=== PATIENT | male | born 1965 | race Caucasian/White ===

== ENCOUNTER 2021-11-19 02:41 | Emergency (ER) | payer MEDICARE, SELFPAY ==
--- NOTE | ~2021-11-19 | CT_ITS ---
EXAMINATION: CT lumbar spine wo con DATE: 11/19/2021 04:46 INDICATION: Low back pain. TECHNIQUE: Computed tomography (CT) of the lumbar spine was performed without intravenous contrast. A utomated exposure control and iterative reconstruction technique were employed. The dose-length produ ct was 711.39 mGy-cm. COMPARISON: None FINDINGS: Partially visualized is a transjugular intrahepatic portosystemic shunt. There is 3 degrees dextrocurvature of lumbar spine. There is mild chronic anterior wedging of T12 and L1 vertebral bodi es. There is mildly decreased disc height at L2-L3 and L4-L5. The following disc levels are specifica lly discussed: L1-L2: The disc is bulging. There is severe bilateral facet joint osteoarthritis. There is mild left neural foraminal stenosis. There is mild central canal stenosis. L2-L3: The disc is bulging. There is severe right and moderate left facet joint osteoarthritis. There is mild bilateral neural foraminal stenosis. There is mild central canal stenosis. L3-L4: The disc is bulging. There is mild right and moderate left facet joint osteoarthritis. There i s mild right and moderate left neural foraminal stenosis. There is mild central canal stenosis. L4-L5: The disc is bulging. There is moderate bilateral facet joint osteoarthritis. There is moderate bilateral neural foraminal stenosis. There is severe central canal stenosis. L5-S1: The disc is bulging. There is severe bilateral facet joint osteoarthritis. There is mild bilat eral neural foraminal stenosis. There is mild central canal stenosis. IMPRESSION: 1. Severe lumbar spondylosis. Reviewed, dictated and finalized at location A.
[2021-11-19 03:00] VITALS: BP 170/92; PULSE 81; RESP 18; TEMP 36.6; O2SAT 98
--- NOTE | 2021-11-19 03:10 | ED.GENADULT ---
HPI - General Adult General Chief complaint: Back Pain/Injury Stated complaint: lower flank pain Time Seen by Provider: 11/19/21 02:47 History of Present Illness HPI narrative: This is a 56-year-old male who presented ED with lower back pain. Patient has chronic lumbar radiculopathy. He says the pain starts in the left sacroiliac region extends down the back of his leg to the bottom his foot. Patient was supposed to have lumbar surgery in February of last year in [place], but it was cancelled due to low platelets. Since then it appears he has been moving around to different locations and seeing different doctors. The patient states over the last month he has been having more difficulty urinating and was recently started on flomax. Patient denies fever, chills, history of cancer or recent trauma. He has remote history of IV drug use approximately 25 years ago. Patient denies saddle anesthesia or bowel incontinence. Related Data Home Medications Medication Instructions Recorded Confirmed carvedilol 3.125 mg tablet 3.125 mg PO DAILY 11/19/21 11/19/21 cyclobenzaprine 5 mg tablet 5 mg PO DAILY 11/19/21 11/19/21 gabapentin 300 mg capsule 300 mg PO BID 11/19/21 11/19/21 hydrocodone 5 mg-acetaminophen 325 1 tablet PO PRN PRN Pain 11/19/21 11/19/21 mg tablet tamsulosin 0.4 mg capsule 0.4 mg PO DAILY 11/19/21 11/19/21 Allergies Allergy/AdvReac Type Severity Reaction Status Date / Time tramadol Allergy Hives Verified 11/19/21 03:19 Review of Systems Constitutional: Constitutional: Denies chills and Denies fever(s) Eyes: Eyes: Denies change in vision ENT: Denies dysphagia Cardiovascular: Cardiovascular: Denies chest pain Respiratory: Respiratory: Denies chest congestion Gastrointestinal: Gastrointestinal: Denies abdominal pain Genitourinary: Genitourinary: Denies hematuria Musculoskeletal: Musculoskeletal: Denies back pain Integumentary/Breasts: Skin/Breast: Denies rash Neurologic: Denies confusion Psychiatric: Psychiatric: Denies anxiety Endocrine: Endocrine: Denies excessive sweating Hematologic/Lymphatic: Hematologic/Lymphatic: Denies easy bleeding Allergic/Immunologic: Allergic/Immunologic: Denies lip swelling PMFSH Past Medical History Medical History Esophageal varices Hepatic cirrhosis due to chronic hepatitis C infection Lumbar radiculopathy Surgical History Surgical History H/O hand surgery S/P TIPS (transjugular intrahepatic portosystemic shunt) Exam Narrative: patient is lying on the bed. He is intermittently crying out in pain. Const: General: healthy appearing Orientation/consciousness: patient oriented x3 Limitations: no limitations HENMT: Head: normal to inspection Ears: external ears normal General nose exam: Normal external nose present Face and sinus: normal facial exam Eyes: Conjunctivae: conjunctivae normal Pupils: Equal, round and reactive pupils present EOM: EOMs intact bilaterally Neck: Neck: normal visual inspection Chest: Chest palpation & inspection: normal inspection of the chest Resp: Effort & Inspection: normal respiratory effort Cardio: Rate: regular rate Rhythm: regular rhythm GI: GI Palp: Yes Soft to palpation, No Tenderness to palpation present (GI) and No Guarding due to palpation present (GI) : General: Yes bladder normal to palpation Back/Spine/Pelvis: Back: no CVA tenderness Skin: General skin exam: normal color Rashes: no rashes Neuro: General: patient oriented x3, moves all extremities, Normal light touch and pain sensation and CN's II-XI intact bilaterally Motor exam (neuro): Abnormal motor strength present (Decreased plantar flexion of L ankle.) Other: Patient has pain with elevation his left leg however he is not having increased pain with dorsiflexion of the foot. Negative straight leg raise on the right.
[2021-11-19] MEDS: HYDROcodone/acetaminophen (*CRX) 5-325 MG TABLET 1 TAB PO (03:24)
[2021-11-19] MEDS: ACETAMINOPHEN 325 MG TABLET 650 MG PO (03:25)
[2021-11-19] MEDS: CYCLOBENZAPRINE HCL 10 MG TABLET 5 MG PO (03:25)
[2021-11-19] MEDS: KETOROLAC 30 MG/ML VIAL (*BKC) 15 MG IM (03:26)
--- NOTE | 2021-11-19 04:17 | PC.NURSE ---
Pt is unable to urinate at this time and reports he has had difficulty urinating and unable to walk due to pain. Pt attempted to urinate standing and unsuccessful. ERP spoke to pt. about POC for transfer to have further studies and possible MRI. Pt wants to go to [place] if able. Call placed to [facility] for oncall neurosurgery.
[2021-11-19 04:54] LABS: Basophils Absolute Auto 0.07 K/mm3 (0.00-0.10); Basophils Percent Auto 1.3 % (0.0-1.0); Eosinophils Percent Auto 3.6 % (1.0-6.0); Hematocrit 43.1 % (40.0-54.0); Hemoglobin 15.1 g/dL (14.0-18.0); Immature Granulocyte Absolute 0.01 K/mm3 (0.00-0.00); Immature Granulocyte Percent A 0.2 % (0.0-0.0); Lymphocytes Absolute Auto 2.14 K/mm3 (1.10-4.50); Lymphocytes Percent Auto 38.8 % (18.0-42.0); Mean Corpuscular Volume 94.3 fL (78.0-102.0); Mean Platelet Volume 10.7 fl (8.7-11.0); Monocytes Percent Auto 9.1 % (2.0-11.0); Neutrophils Absolute Auto 2.6 K/mm3 (1.7-7.2); Platelet Count Result 100 K/mm3 (150-420); Red Blood Count 4.57 M/mm3 (4.70-6.10); Red Cell Distribution Width 15.1 % (11.6-14.4); White Blood Count 5.5 K/mm3 (4.8-10.8)
[2021-11-19 04:58] VITALS: BP 169/77; PULSE 87; RESP 20; O2SAT 97
[2021-11-19 05:07] LABS: INR 1.1
[2021-11-19 05:10] LABS: Alanine Aminotransferase 23 U/L (16-63); Albumin Level 3.6 g/dL (3.4-5.0); Alkaline Phosphatase 144 U/L (46-116); Anion Gap 11 mmol/L (8-16); Aspartate Amino Transferase 37 U/L (15-37); Bilirubin,Total 1.7 mg/dL (0.00-1.00); Blood Urea Nitrogen 7 mg/dL (7-18); Calcium 9.1 mg/dL (8.5-10.1); Carbon Dioxide 23 mmol/L (21-32); Chloride 112 mmol/L (98-108); Estimated CRCL calculation 96 ml/min; Estimated Glomerular Filt Rate > 60; Glucose 109 mg/dL (70-99); Osmolality Calculated 301 mOsm/kg (285-295); Potassium 3.7 mmol/L (3.5-5.1); Sodium 146 mmol/L (136-145); Total Protein 6.9 g/dL (6.4-8.2)
[2021-11-19 06:03] LABS: SARS-CoV-2 RNA PCR Negative (Negative)
--- NOTE | 2021-11-19 06:05 | PC.NURSE ---
ERP spoke to Neuro Dr. Franklin at [facility], awaiting to review pts records and will call back if accepted and able to transfer.
[2021-11-19 06:23] VITALS: BP 160/74; PULSE 74; RESP 18; TEMP 36.4; O2SAT 98
--- NOTE | 2021-11-19 06:28 | PC.NURSE ---
Call placed to [facility] for pt transfer. Pt sleeping at this time, VSS.
== END 2021-11-19 06:59 | disposition short-term general hospital (02) ==
PROVIDERS: Emergency Provider Emergency Medicine
DX: M54.16 Radiculopathy, lumbar region (principal); G95.20 Unspecified cord compression
CPT/HCPCS: 36415; 72131; 80053; 85025; 85610; 86850; 86900; 86901; 96372; 99285; A9270; C9803; J1885; U0003; U0005

== ENCOUNTER 2021-11-19 07:32 | Inpatient (IN) | payer MEDICARE, SELFPAY ==
--- NOTE | ~2021-11-19 | MR_ITS ---
EXAMINATION: MR thoracic spine wo con DATE: 11/20/2021 17:37 INDICATION: Back pain, hand numbness, lower extremity weakness, urinary retention. TECHNIQUE: Magnetic resonance imaging (MRI) of the thoracic spine was performed without intravenous c ontrast. Sagittal localizer T1-weighted FSE of the cervical spine was obtained. Thoracic spine sequen bee included sagittal T2-weighted FSE, sagittal T1-weighted FSE, sagittal T2-weighted FS FSE, and axi al T2-weighted FSE. COMPARISON: None FINDINGS: Mild upper thoracic scoliosis. Vertebral bodies are aligned. Multilevel Schmorl's nodes wit h disc dehydration in the mid to lower thoracic spine. Modic type I changes in the anterolateral aspe ct of T6-7. Modic type II changes in the anterolateral aspect of T8-9 2012 at L1. Likely vertebral mere dy hemangioma at L1. Vertebral body heights are intact. Multilevel mild to moderate facet arthropathy in the lower thoracic spine. Small, focal disc extrusion at T7-8 with right sided posterior directed osteophyte that indents the thecal sac. Right-sided facet hypertrophy at T10-11 anteriorly directed osteophyte that indents the thecal sac. No significant neural foraminal stenosis. The cord is normal in signal and caliber. Conus terminates at L1. IMPRESSION: 1. Modic type I changes at T6/7 could be a source of pain. 2. Mild central canal stenosis at T7-8 and T10-11 secondary to degenerative disc and facet change. 3. Multilevel mild to moderate facet arthropathy. Reviewed, dictated and finalized at location K. IMPRESSION: 1. Modic type I changes at T6/7 could be a source of pain. 2. Mild central canal stenosis at T7-8 and T10-11 secondary to degenerative dis c and facet change. 3. Multilevel mild to moderate facet arthropathy.
--- NOTE | ~2021-11-19 | MR_ITS ---
EXAMINATION: MR cervical spine wo con DATE: 11/20/2021 17:43 INDICATION: Back pain. Hand numbness. TECHNIQUE: Magnetic resonance imaging (MRI) of the cervical spine was performed without intravenous c ontrast. Sequences included sagittal T2-weighted FSE, sagittal T2-weighted FS FSE, sagittal T1-weight ed FSE, axial MERGE, and axial T2-weighted FSE. COMPARISON: None FINDINGS: Craniocervical association and atlantoaxial joint are intact. Normal alignment. Vertebral b jaelyn heights are maintained. Normal discs. The cord signal is normal. Diffuse congenital appearing ruby tral canal narrowing. Normal cervicomedullary junction. The following disc levels are specifically di scussed: C2-C3: Mild diffuse bulge. There is moderate right and mild left uncovertebral joint osteoarthritis. There is mild bilateral facet joint osteoarthritis. There is moderate right and mild left neural fora melissa stenosis. There is mild central canal stenosis. C3-C4: Mild diffuse bulge with small central protrusion. There is mild bilateral uncovertebral joint osteoarthritis. There is mild bilateral facet joint osteoarthritis. There is mild bilateral neural fo raminal stenosis. There is mild central canal stenosis. C4-C5: Mild diffuse bulge with a small left subarticular protrusion There is mild right and moderate left uncovertebral joint osteoarthritis. There is mild bilateral facet joint osteoarthritis. There is mild right and moderate left neural foraminal stenosis. There is mild central canal stenosis. C5-C6: Mild diffuse bulge with a small left subarticular extrusion. There is moderate bilateral uncov ertebral joint osteoarthritis. There is mild bilateral facet joint osteoarthritis. There is mild righ t and moderate left neural foraminal stenosis. There is mild central canal stenosis. C6-C7: Mild diffuse bulge with a small central protrusion. There is mild bilateral uncovertebral join t osteoarthritis. There is mild bilateral facet joint osteoarthritis. There is mild bilateral neural foraminal stenosis. There is mild central canal stenosis. C7-T1: Moderate diffuse bulge with a small central protrusion. There is mild right and moderate left uncovertebral joint osteoarthritis. There is mild bilateral facet joint osteoarthritis. There is no r ight and mild left neural foraminal stenosis. There is no central canal stenosis. IMPRESSION: 1. Multilevel degenerative disc disease in the cervical spine with multiple small disc protrusions/ex trusions, described above. 2. Uncovertebral joint hypertrophy and facet arthropathy contribute to multilevel mild and moderate d egrees of neural foraminal narrowing. 3. Multilevel mild central canal stenosis likely on a combined degenerative and congenital basis. Reviewed, dictated and finalized at location K. IMPRESSION: 1. Multilevel degenerative disc disease in the cervical spine with multiple sma ll disc protrusions/extrusions, described above. 2. Uncovertebral joint hypertrophy and facet arthropathy contribute to multilev el mild and moderate degrees of neural foraminal narrowing. 3. Multilevel mild central canal stenosis likely on a combined degenerative and congenital basis.
--- NOTE | ~2021-11-19 | MR_ITS ---
EXAMINATION: MR lumbar spine wo con DATE: 11/20/2021 17:37 INDICATION: back pain . TECHNIQUE: Magnetic resonance imaging (MRI) of the lumbar spine was performed without intravenous con trast. Sequences included sagittal T2-weighted FSE, sagittal T2-weighted FS FSE, sagittal T1-weighted FSE, and axial T2-weighted FSE. COMPARISON: None FINDINGS: The last fully formed and hydrated disc is designated L5-S1. Mild focal marrow edema at the superior endplates of L2 and L3. Scattered Modic 2 type change. Conus terminates at L1. Multilevel d isc dehydration. The following disc levels are specifically discussed: T11-T12: Mild diffuse bulge. There is mild bilateral facet joint osteoarthritis. There is no neural f oraminal stenosis. There is no central canal stenosis. T12-L1: The disc does not extend beyond the endplate margin. There is no facet joint osteoarthritis. There is no neural foraminal stenosis. There is no central canal stenosis. L1-L2: Mild diffuse bulge. There is mild bilateral facet joint osteoarthritis. There is no neural for aminal stenosis. There is no central canal stenosis. L2-L3: Moderate diffuse bulge. There is moderate bilateral facet joint osteoarthritis. There is moder ate bilateral neural foraminal stenosis. There is mild central canal stenosis. L3-L4: Moderate diffuse bulge. There is severe bilateral facet joint osteoarthritis. There is mild ri ght and moderate left neural foraminal stenosis. There is mild central canal stenosis. L4-L5: Large diffuse bulge. There is severe bilateral facet joint osteoarthritis. There is moderate b ilateral neural foraminal stenosis. There is severe central canal stenosis. L5-S1: Mild diffuse bulge. There is moderate bilateral facet joint osteoarthritis. There is no neural foraminal stenosis. There is no central canal stenosis. IMPRESSION: 1. Severe central canal stenosis at L4-5 secondary to a large degenerative disc bulge and severe bila teral facet osteoarthritis. 2. Moderate left L3-4 and moderate bilateral L4-5 neural foraminal narrowing. 3. Mild focal superior endplate edema in L2 and L3, possibly representing early Modic type I change, which may be an additional source of pain. 4. Multilevel moderate facet arthropathy. Reviewed, dictated and finalized at location K. IMPRESSION: 1. Severe central canal stenosis at L4-5 secondary to a large degenerative disc bulge and severe bilateral facet osteoarthritis. 2. Moderate left L3-4 and moderate bilateral L4-5 neural foraminal narrowing. 3. Mild focal superior endplate edema in L2 and L3, possibly representing early Modic type I change, which may be an additional source of pain. 4. Multilevel moderate facet arthropathy.
[2021-11-19 09:15] VITALS: BMI 26.8
--- NOTE | 2021-11-19 09:20 | ADMGEN ---
This patient, Danilo Munoz, was admitted to [facility] Surg Room 325-02 at 0720. Patient/family oriented to hospital policies and general routines including ID bracelet, bed and alarms, visiting hours, pain management, procedures, bathroom and other care routines, personal items, smoking policy, room service/diet, and visiting hours. Information on how to activate the Rapid Response Team has been discussed. Patient/Family are encouraged to report perceived risks to care and to ask questions if they do not understand what they are told or what they should do.
[2021-11-19] MEDS: CYCLOBENZAPRINE HCL 5 MG TABLET PO (10:05)
[2021-11-19] MEDS: HYDROcodone/acetaminophen (*CRX) 5-325 MG TABLET 1 TAB PO ×2 (10:05→14:10)
[2021-11-19] MEDS: GABAPENTIN 300 MG CAPSULE PO ×2 (10:35→20:12)
[2021-11-19] MEDS: TAMSULOSIN HCL 0.4 MG CAPSULE PO (10:35)
[2021-11-19 13:33] VITALS: BP 168/81; PULSE 82; RESP 18; TEMP 36.4; O2SAT 99
--- NOTE | 2021-11-19 13:40 | PM.IMHP ---
H&P: HPI History of Present Illness Date/Time: 11/19/21 13:40 Chief Complaint: Bilateral lower leg extremity/Urinary retention Narrative: Patient is a 56-year-old male with a past medical history of esophageal varices, hepatic cirrhosis with hepatitis-C, tip surgery, umbilical hernia repair, peripheral neuropathy who presented to the ED at [place] with complaints of bilateral lower extremity weakness and urinary retention. Patient stated this all started a little while ago and has just gotten worse over last couple days. Patient stated that in order to urinate he has to lean a certain way and turned his head a certain way for tall come out. He then told me that it is all related to the bone spurs in his neck hitting his sciatic nerve in his hip causing him to have shooting pain and numbness and tingling in legs. Patient stated that he has not been able to walk lately. He was supposed to have surgery however his platelets were low the would do a surgery for him. Patient also stated that when he tries to urinate standing up it is impossible. He denies any dizziness, chest pain, shortness a breath, nausea, vomiting, diarrhea, constipation, weakness or fatigue. He did look to have some muscle spasm going on. CT of the spine just showed spondylolysis. Mcclure catheter was inserted due to the patient's having urinary retention for greater than 576 on the bladder scan. Patient is being admitted to the hospital service under observation Review of Systems Review of Systems: All systems reviewed & are unremarkable except as noted in HPI and below PMFSH Past Medical History Medical History Chronic pain Esophageal varices Hepatic cirrhosis due to chronic hepatitis C infection Hypertension Lumbar radiculopathy Surgical History Surgical History H/O hand surgery S/P TIPS (transjugular intrahepatic portosystemic shunt) Family History Family History Father Heart disease Hypertension ESRD (end stage renal disease) on dialysis Diabetes mellitus Mother Non-small cell carcinoma of left lung Social History Social History Social History: patient is currently living with his cousin temporarily and just moved to [place] 1 month ago. His surrogate is a son Raghav at . 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 Patient wishes to be a full code at this time. 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 Living arrangements: with family Occupation/Education: occupation Gender identity (if verbalized by the patient): Male Sexual Orientation (if Verbalized by the Patient): Straight or Heterosexual Spiritual care concerns: No Agree to blood products: Yes Meds Home Medications and Allergies Home Medications Medication Instructions Recorded Confirmed Type cyclobenzaprine 5 mg tablet 5 mg PO DAILY 11/19/21 11/19/21 History gabapentin 300 mg capsule 300 mg PO BID 11/19/21 11/19/21 History hydrocodone 5 mg-acetaminophen 325 1 tablet PO PRN PRN Pain 11/19/21 11/19/21 History mg tablet tamsulosin 0.4 mg capsule 0.4 mg PO DAILY 11/19/21 11/19/21 History Allergies Allergy/AdvReac Type Severity Reaction Status Date / Time tramadol Allergy Hives Verified 11/19/21 03:19 Vital Signs Vital Signs - 24 hr 11/19/21 13:33 Temperature 97.5 F L Pulse Rate 82 Respiratory Rate
[2021-11-19] MEDS: MORPHINE SULFATE (*CRX) 2 MG/ML INJ IV PUSH ×2 (16:56→20:15)
[2021-11-19 20:00] VITALS: PULSE 82; RESP 18; O2SAT 97
[2021-11-19 23:57] VITALS: BP 168/81; PULSE 82; RESP 18; TEMP 36.4; O2SAT 97
[2021-11-20] MEDS: MORPHINE SULFATE (*CRX) 2 MG/ML INJ IV PUSH ×6 (00:54→20:45)
[2021-11-20] MEDS: TIZANIDINE HCL 2 MG TABLET PO ×2 (04:59→12:57)
[2021-11-20 06:56] LABS: Basophils Absolute Auto 0.1 K/mm3 (0.0-0.1); Basophils Percent Auto 1.3 % (0.2-1.2); Eosinophils Absolute Auto 0.2 K/mm3 (0-0.3); Eosinophils Percent Auto 3.6 % (0-4.4); Hematocrit 41.2 % (42.0-52.0); Hemoglobin 14.1 g/dL (14.0-18.0); Immature Granulocyte Absolute 0.01 K/mm3 (0.00-0.031); Immature Granulocyte Percent A 0.2 % (0-0.5); Immature Platelet Fraction Pct 5.1 % (0.9-11.2); Lymphocytes Absolute Auto 1.62 K/mm3 (0.9-3.2); Lymphocytes Percent Auto 34.3 % (18.3-44.2); Mean Corpuscular HGB Conc 34.2 g/dl (32-36); Mean Corpuscular Hemoglobin 32.4 pg (26-34); Mean Corpuscular Volume 94.7 fl (80-100); Mean Platelet Volume 10.3 fl (7.4-10.4); Monocytes Absolute Auto 0.5 K/mm3 (0.1-0.6); Neutrophils Absolute Auto 2.4 K/mm3 (1.3-6.7); Neutrophils Percent Auto 50.6 % (45.5-73.1); Platelet Count Result 90 k/mm3 (150-375); Red Blood Count 4.35 M/mm3 (4.6-6.20); Red Cell Distribution Width 15.3 % (11.5-14.5); White Blood Count 4.7 K/mm3 (4.5-10.0)
[2021-11-20 07:12] LABS: Alanine Aminotransferase 18 U/L (6-50); Albumin Level 3.1 g/dL (3.5-5.1); Alkaline Phosphatase 111 U/L (38-126); Anion Gap 5 mmol/L (8-16); Aspartate Amino Transferase 35 U/L (17-59); Blood Urea Nitrogen 9 mg/dL (9-20); Calcium 8.3 mg/dL (8.4-10.2); Carbon Dioxide 25 mmol/L (22-30); Chloride 107 mmol/L (98-107); Estimated CRCL calculation 102 ml/min; Estimated Glomerular Filt Rate > 60; Glucose 115 mg/dL (65-110); Magnesium 1.7 mg/dL (1.6-2.3); Potassium 3.6 mmol/L (3.4-5.0); Sodium 137 mmol/L (137-145)
[2021-11-20 08:00] VITALS: BP 102/60; PULSE 63; RESP 20; TEMP 36.4; O2SAT 100
[2021-11-20] MEDS: GABAPENTIN 300 MG CAPSULE PO ×2 (08:48→20:27)
[2021-11-20] MEDS: TAMSULOSIN HCL 0.4 MG CAPSULE PO (08:48)
[2021-11-20 14:00] VITALS: BP 111/58; PULSE 57; RESP 18; TEMP 36.7; O2SAT 100
--- NOTE | 2021-11-20 14:00 | PM.IMPN ---
Progress Note: A&P Assessment and Plan (1) Lumbar radiculopathy: Code(s): M54.16 - Radiculopathy, lumbar region Status: Acute Assessment and Plan: patient does have notable chronic back pain CT shows severe spondylolysis MRI ordered however awaiting for more information on the stent and shoulder neurochecks Q 4 hours pain medication on board tizanidine 2 mg t.i.d. p.r.n. Trend pain score neurosurgery on board concern for spinal cord compression since the patient can not walk or use the bathroom quick appropriately (2) BPH (benign prostatic hyperplasia): Code(s): N40.0 - Benign prostatic hyperplasia without lower urinary tract symptoms Status: Acute Assessment and Plan: patient reports urinary retention bladder scan showed 576 in bladder urinary catheter installed continue home Flomax consider urology consult (3) Hypertension: Code(s): I10 - Essential (primary) hypertension Status: Acute Assessment and Plan: current blood pressure 102/60 continue home carvedilol 3.125 daily trend blood pressure adjust therapy as indicated (4) Chronic pain: Code(s): G89.29 - Other chronic pain Status: Acute Assessment and Plan: Tylenol, [place], morphine on board for pain Trend pain score adjust therapy as indicated Time Spent With Patient Time with patient: Greater than 35 minutes Subjective Date/time seen: 11/20/21 1400 Interval history: 11/20/21 1400 No real changes noted today. He does have pain when he tries to move his bilateral lower extremities. He denies any chest pain, shortness of breath, nausea, constipation, diarrhea. They did get records from [facility] however they did show a revision of shunt stent. Still waiting other records from other facility. Neuro surgery on board however state they can do anything into the get MRI. 11/19/21? 13:40 ? Patient is a 56-year-old male with a past medical history of esophageal varices, hepatic cirrhosis with hepatitis-C, tip surgery, umbilical hernia repair, peripheral neuropathy who presented to the ED at [facility] with complaints of bilateral lower extremity weakness and urinary retention.? Patient stated this all started a little while ago and has just gotten worse over last couple days.? Patient stated that in order to urinate he has to lean a certain way and turned his head a certain way for tall come out.? He then told me that it is all related to the bone spurs in his neck hitting his sciatic nerve in his hip causing him to have shooting pain and numbness and tingling in legs.? Patient stated that he has not been able to walk lately.? He was supposed to have surgery however his platelets were low the would do a surgery for him.? Patient also stated that when he tries to urinate standing up it is impossible.? He denies any dizziness, chest pain, shortness a breath, nausea, vomiting, diarrhea, constipation, weakness or fatigue.? He did look to have some muscle spasm going on.? CT of the spine just showed spondylolysis.? Mcclure catheter was inserted due to the patient's having urinary retention for greater than 576 on the bladder scan. Review of Systems Review of Systems: All systems reviewed & are unremarkable except as noted in HPI and below Exam Const: General: cooperative, healthy appearing, no acute distress, well developed, alert and awake Nutritional Appearance: well nourished Orientation/consciousness: patient oriented x3 Limitations: no limitations HENMT: Head: normal to inspection Ears: hearing grossly normal bilaterally General nose exam: Normal external nose present Mouth: Yes Normal oral and palatal mucosa present, Yes lip normal and Yes tongue normal Teeth and gingiva: abnormal tooth and associated gingiva and poor dentition Eyes: General: appearance normal, both eyes and all related structures Neck: Ne
--- NOTE | 2021-11-20 15:53 | WPDCN ---
Assessment and Plan Assessment and plan (1) Lumbar radiculopathy: Code(s): M54.16 - Radiculopathy, lumbar region Status: Acute Plan 56 yo M w/ Hep C, HTN, chronic low back pain progressive over 6 months who presents with concern for cauda equina, unable to get MRI for past 2 days. Additional Plan recommend STAT MRI Lumbar spine Please keep NPO after midnight Please obtain PT/PTT/INR Platelet goal >100k HPI Data of Consult Date/Time: 11/20/21 15:53 Requesting Physician: Bin Tidwell MD Primary Care Provider: UNKNOWN,DOCTOR Consult Narrative Narrative: Danilo Munoz is a 56 year old male with a history of hepatitis C s/p treatment, TIPS procedure, and prior shoulder stent who presents with chronic low back pain. 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 He recently moved from [place] to [place] to live with his cousins. He has been on disability since 2017. He explains he has had progressive weakness in his lower extremities for the past 6 months. He has had difficulty urinating for a similar time period that has worsened in the past week prompting him to seek medical attention in [place]. They did not have an MRI scan here so a transfer to [facility] was requested. Since his arrival here yesterday morning, attempts have been made to identify a serial number on his stent and he has been unable to get an MRI scan. He reports to me he has had several MRI scans without issue. He notes some paresthesias in his pinky fingers bilaterally, otherwise no upper extremity syumptoms. Review of Systems Review of Systems: All systems reviewed & are unremarkable except as noted in HPI and below PMFSH Past Medical History Medical History Chronic pain Esophageal varices Hepatic cirrhosis due to chronic hepatitis C infection Hypertension Lumbar radiculopathy Surgical History Surgical History H/O hand surgery S/P TIPS (transjugular intrahepatic portosystemic shunt) Family History Family History Father Heart disease Hypertension ESRD (end stage renal disease) on dialysis Diabetes mellitus Mother Non-small cell carcinoma of left lung Social History Social History Social History: patient is currently living with his cousin temporarily and just moved to [place] 1 month ago. His surrogate is a son Raghav at . Patient is currently on disability and was a executive chef assistant for 20 years. Patient wishes to be a full code at this time. 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 Living arrangements: with family Occupation/Education: occupation Gender identity (if verbalized by the patient): Male Sexual Orientation (if Verbalized by the Patient): Straight or Heterosexual Spiritual care concerns: No Agree to blood products: Yes Meds Home Medications and Allergies Home Medications Medication Instructions Recorded Confirmed Type cyclobenzaprine 5 mg tablet 5 mg PO DAILY 11/19/21 11/19/21 History gabapentin 300 mg capsule 300 mg PO BID 11/19/21 11/19/21 History hydrocodone 5 mg-acetaminophen 325 1 tablet PO PRN PRN Pain 11/19/21 11/19/21 History mg tablet tamsulosin 0.4 mg capsule 0.4 mg PO DAILY 11/19/21 11/19/21 History Allergies Allergy/AdvReac Type Severity Reaction Status Date / Time ciarra
--- NOTE | 2021-11-20 16:41 | PC.NURSE ---
patient to MRI per stretcher
--- NOTE | 2021-11-20 18:01 | PC.NURSE ---
patient returning to room from MRI
[2021-11-20 18:12] LABS: Appearance Urine Clear (Clear); Bilirubin Urine Negative (Negative); Blood Urine 1+ (Negative); Color Urine Yellow (Yellow); Glucose Urine UA Negative (Negative); Ketones Urine Negative (Negative); Leukocyte Esterase Ur 1+ LEU/UL (NEGATIVE); Nitrate Urine Negative (Negative); Protein Urine Negative (Negative)
[2021-11-20 18:29] LABS: Bacteria Urine Trace /hpf; Mucus Urine Rare /lpf
[2021-11-20 18:31] LABS: Add Urine Microscopic? YES
[2021-11-20 21:51] VITALS: BP 126/59; PULSE 70; RESP 18; TEMP 35.8; O2SAT 99
[2021-11-21] MEDS: MORPHINE SULFATE (*CRX) 2 MG/ML INJ IV PUSH ×3 (01:05→09:47)
[2021-11-21 06:00] VITALS: BP 134/58; PULSE 60; RESP 18; TEMP 36.1; O2SAT 99
--- NOTE | 2021-11-21 07:24 | PM.TDS ---
Transfer Discharge Sum: Prov Provider Date of admission: 11/20/21 14:45 Primary care physician: UNKNOWN,DOCTOR Admitting clinician: Bin Tidwell MD Consults: 11/19/21 Consult to Physician Routine Comment: ED from [facility] spoke with him, spoke to dr Consulting Provider: Maulik Franklin call out operator/MD group to consult: Reason for consultation: Chronic back pain Has provider been notified: Yes Attending physician on discharge: Rachel Veronica Discharging clinician: Elena Parks Anticipated date of transfer: 11/21/21 Receiving physician/facility: [facility] DS: Admitting Diagnosis Discharge Date 11/21/21 Admitting Diagnosis back pain DS: Discharge Diagnosis Discharge Diagnosis (1) Lumbar radiculopathy: Code(s): M54.16 - Radiculopathy, lumbar region Status: Acute Assessment and Plan: -progressive back pain x6 months w/ urinary retention -concern for cauda equina -MRI took 2 days to obtain due to needing more info on stent in his shoulder -L spine MRI report shows severe central canal stenosis secondary to large degenerative disc bulge, moderate bilateral neural foraminal narrowing, mild superior endplate edema -Seen by neurosurgery Dr. Franklin who has facilitated a transfer to [facility] for neurosurgery intervention (2) Hypertension: Code(s): I10 - Essential (primary) hypertension Status: Acute Assessment and Plan: -stable -continued carvedilol Transfer Discharge Sum: Med Medications Active and Home Medications: Home Medications cyclobenzaprine 5 mg tablet 5 mg PO DAILY 11/19/21 [History Confirmed 11/19/21] gabapentin 300 mg capsule 300 mg PO BID 11/19/21 [History Confirmed 11/19/21] hydrocodone 5 mg-acetaminophen 325 mg tablet 1 tablet PO PRN PRN Pain 11/19/21 [History Confirmed 11/19/21] tamsulosin 0.4 mg capsule 0.4 mg PO DAILY 11/19/21 [History Confirmed 11/19/21] Active Medications Acetaminophen (Acetaminophen 325 Mg Tablet) 650 mg PO Q4H PRN PRN Reason: Mild Pain (1-3) or Fever Hydrocodone Bitart/Acetaminophen (Hydrocodone/Acetaminophen (*Crx) 5-325 Mg Tablet) 1 tab PO Q4H PRN PRN Reason: Moderate Pain (4-6) Gabapentin (Gabapentin 300 Mg Capsule) 300 mg PO Q12HR [facility] Last Admin: 11/20/21 20:27 Dose: 300 mg Morphine Sulfate (Morphine Sulfate (*Crx) 2 Mg/Ml Inj) 2 mg IV PUSH Q4H PRN PRN Reason: Pain Rated 7-10 Last Admin: 11/21/21 05:07 Dose: 2 mg Ondansetron HCl (Ondansetron Inj 4 Mg/2 Ml Vial) 4 mg IV PUSH Q6H PRN PRN Reason: Nausea And Vomiting Tamsulosin HCl (Tamsulosin Hcl 0.4 Mg Capsule) 0.4 mg PO DAILY [facility] Last Admin: 11/20/21 08:48 Dose: 0.4 mg Tizanidine HCl (Tizanidine Hcl 2 Mg Tablet) 2 mg PO TID PRN PRN Reason: muscle spasm Last Admin: 11/20/21 12:57 Dose: 2 mg Transfer Discharge Sum: Hosp Hospital Course Hospital course: Danilo Munoz is a 56 year old male with a past medical history of esophageal varices, hepatic cirrhosis with hepatitis-C, tip surgery, umbilical hernia repair, peripheral neuropathy, who presented to the hospital with back pain, LE weakness, and urinary retention. Time Spent with Patient Time attestation: Total time spent providing and/or coordinating transfer services: 35 Total time spent: Greater than 30 minutes Exam Narrative: General: No acute distress, non toxic appearing Eyes: PERRL, no scleral icterus HEENT: NCAT, external ears normal, MMM Respiratory: No respiratory distress, Lungs CTA bilaterally, no wheezing Cardiovascular: RRR, no murmur Abdominal: Soft, nontender, non distended, no rebound or guarding Musculoskeletal: no edema, no calf tenderness Neurological: A/Ox3, speech clear, no facial asymmetry, BUE 5/5 strength, RLE 4/5 strength, LLE 3/5 strength, decreased sensation LLE, DP/PT pulses 2+ Skin: Warm, dry, no rashes Psychiatric: Normal affect, normal mood DS: Data Data Completed and Pending Labs on day of discharge: Labs fr
[2021-11-21 07:53] LABS: Basophils Absolute Auto 0.1 K/mm3 (0.0-0.1); Basophils Percent Auto 1.2 % (0.2-1.2); Eosinophils Absolute Auto 0.1 K/mm3 (0-0.3); Eosinophils Percent Auto 2.6 % (0-4.4); Hematocrit 43.8 % (42.0-52.0); Immature Granulocyte Absolute 0.01 K/mm3 (0.00-0.031); Immature Granulocyte Percent A 0.2 % (0-0.5); Immature Platelet Fraction Pct 5.5 % (0.9-11.2); Lymphocytes Percent Auto 31.6 % (18.3-44.2); Mean Corpuscular HGB Conc 34.2 g/dl (32-36); Mean Corpuscular Hemoglobin 32.9 pg (26-34); Mean Corpuscular Volume 96.1 fl (80-100); Mean Platelet Volume 10.7 fl (7.4-10.4); Monocytes Absolute Auto 0.4 K/mm3 (0.1-0.6); Monocytes Percent Auto 8.7 % (2.6-8.5); Neutrophils Absolute Auto 2.8 K/mm3 (1.3-6.7); Neutrophils Percent Auto 55.7 % (45.5-73.1); Platelet Count Result 83 k/mm3 (150-375); Red Blood Count 4.56 M/mm3 (4.6-6.20); Red Cell Distribution Width 15.1 % (11.5-14.5); White Blood Count 5.1 K/mm3 (4.5-10.0)
[2021-11-21] MEDS: GABAPENTIN 300 MG CAPSULE PO (07:59)
[2021-11-21] MEDS: TAMSULOSIN HCL 0.4 MG CAPSULE PO (07:59)
[2021-11-21] MEDS: TIZANIDINE HCL 2 MG TABLET PO (07:59)
[2021-11-21 08:02] LABS: INR 1.3; Prothrombin Time 15.6 Seconds (11.1-14.7)
[2021-11-21 08:03] LABS: Partial Thromboplastin Time 33.5 SECONDS (22.3-36.8)
[2021-11-21 08:14] LABS: Alanine Aminotransferase 17 U/L (6-50); Albumin Level 3.2 g/dL (3.5-5.1); Alkaline Phosphatase 116 U/L (38-126); Anion Gap 5 mmol/L (8-16); Aspartate Amino Transferase 36 U/L (17-59); Bilirubin,Total 1.6 mg/dL (0.2-1.3); Blood Urea Nitrogen 9 mg/dL (9-20); Calcium 8.4 mg/dL (8.4-10.2); Carbon Dioxide 26 mmol/L (22-30); Chloride 108 mmol/L (98-107); Estimated CRCL calculation 102 ml/min; Estimated Glomerular Filt Rate > 60; Glucose 102 mg/dL (65-110); Magnesium 1.7 mg/dL (1.6-2.3); Potassium 4.2 mmol/L (3.4-5.0); Sodium 139 mmol/L (137-145)
[2021-11-21 08:28] LABS: EDCOVIDSCREEN Negative (Negative)
== END 2021-11-21 10:47 | disposition short-term general hospital (02) | DRG 552 ==
PROVIDERS: Neurological Surgery; Nurse Practitioner; Physician Assistant; Admitting Provider Chiropractor; Visit Provider Student in an Organized Health Care Education/Training Program
DX: M51.16 Intervertebral disc disorders with radiculopathy, lumbar region (principal); I85.10 Secondary esophageal varices without bleeding; M48.061 Spinal stenosis, lumbar region without neurogenic claudication; K74.60 Unspecified cirrhosis of liver; B18.2 Chronic viral hepatitis C; I10 Essential (primary) hypertension; N40.1 Benign prostatic hyperplasia with lower urinary tract symptoms; G62.9 Polyneuropathy, unspecified; G89.29 Other chronic pain; R33.8 Other retention of urine; F17.210 Nicotine dependence, cigarettes, uncomplicated
CPT/HCPCS: 36415; 72141; 72146; 72148; 80053; 81001; 83735; 85025; 85055; 85610; 85730; 87426; 96374; 96376; A9270; C9803; G0378; G0379; J1650; J2270